=== PATIENT | female | born 1940 | race Caucasian/White ===

== ENCOUNTER 2025-09-06 09:01 | Outpatient (AMB) | payer MEDICARE, SELFPAY ==
--- OUTSIDE RECORDS SUMMARY | 2025-09-06 09:03 | XMS_ITS | Patient Health Record ---
[facility] Address [address] [place] [address] Care Team Providers Care Infant Caregiver Name Role Phone Mala JAFFE, [facility] Primary Care Provider Micaela Gina Faria Unavailable [phone] Allergies No Known Allergies Reason For Referral No Information Medications Medication SIG (Take, Route, Frequency, Duration) Notes Start Date End Date Status Vitamin Daily Active Vitamin C 1000 MG 1 tablet Orally Once a day; Duration: 30 day(s) Active Senior Multivitamin Plus Active Omeprazole 20 MG 1 tablet 30 minutes before morning meal Orally Once a day; Duration: 30 day(s) 2 per day Active Mingo 3 1000 MG 1 capsule Orally Onc e a day; Duration: 30 day(s) Active Caltrate 600+D Activ e amLODIPine Besylate 10 MG 1 tablet Orall y Once a day; Duration: 30 day(s) Active Immunizations Vaccine Route Administration Date Status Comme nts Influenza Unknown 06/12/2024 Administered COVID-19 Pfizer BioNTech Vaccine Unknown 03/12/2022 Administered 2020,2020,2020 unsure dates Social History Tobacco Use: Social History Observation Description Date Details (start date - stop date) Never Smoker NA - NA Tobacco use other than smoking: Question Answer Notes Are you an other tobacco user? No Tobacco Control (Standard) Question Answer Notes Tobacco use: Nonsmoker Additional Findings: Tobacco non-user Current no nsmoker AUDIT-C (Standard) Question Answer Notes Did you have a drink containing alcohol in the p ast year? No Points 0 Interpretation Negative Problems Problem Type SNOMED Code ICD Code Onset Dates Problem Status W/U Status Risk Notes Problem Acquired hallux valgus (05799389) Hallux valgus (acquired), right foot (M20.11) Active confirmed Problem Bilateral atherosclerosis of arteries of lower limbs (disorder) (69696298408038019 ) Atherosclerosis of [place] artery of both lower extremities, with unspecified presence of clinical manifestation (I70.203) Active confirmed Q7(A), Q8(2B), Q9(1B,2 C) Problem Peripheral venous insufficiency (48599020) Venous insufficiency (I87.2) Active confirmed Vital Signs Blood pressure diastolic 65 mm Hg 04/08/2025 Height 5 ft 1 in in 04/08/2025 Blood pressure systolic 128 mm Hg 04/08/2025 Weight 185 lbs 04/08/2025 BMI 34.95 kg/m2 04/08/2025 Procedures Procedure Date Ordered Date Performed Result Body Sit e 81529-SECGZDY NAIL, 6 OR MORE 10/08/2024 N/A 40296-GCRK SKIN LESIONS, 2 TO 4 10/08/2024 N/A 17346-QLEWKEG NAIL, 6 OR MORE 04/08/2025 N/A 78899-XUPX SKIN LESIONS, 2 TO 4 04/08/2025 N/A Encounters Encounter Location Date Provider Diagnosis [address] [address] 10/08/2024 Gina Chirinos Atherosclerosis of [place] artery of both lower extremities, with unspecified presence of clinical manifestation I70.203 ; Tinea unguium B35.1 ; Pain in right toe(s) M79.674 and Pain in left toe(s) M79.675 [facility] [address] 01/17/2025 Gina Chirinos Edema, lower extremity R60.0 and Venous insufficiency I87.[address] [address] 04/08/2025 Gina Chirinos Atherosclerosis of [place] artery of both lower extremities, with unspecified presence of clinical manifestation I70.203 ; Tinea unguium B35.1 ; Pain in right toe(s) M79.674 and Pain in left toe(s) M79.675 Assessments Encounter Date Diagnosis (ICD Code) Assessment Notes Treatment Notes Treatment Clinical Notes Section Notes 10/08/2024 Atherosclerosis of [place] artery of both lower extremities, with unspecified presence of clinical manifestation (ICD-10 - I70.203) Q7(A), Q8(2B), Q9(1B,2C) 01/17/2025 Venous insufficiency (ICD-10 - I87.2) 01/17/2025 Edema, lower extremity (ICD-10 - R60.0) 04/08/2025 Atherosclerosis of [place] artery of both lower extremities, with unspecified presence of clinical manifestation (ICD-10 - I70.203) Q7(A), Q8(2B), Q9(1B,2C) 04/08/2025 Tinea unguium (ICD-10 - B35.1) 10/08/2024 Tinea unguium (ICD-10 - B35.1) 10/08/2024 Pain in right toe(s) (ICD-10 - M79.674) 04/08/2025 Pain in right toe(s) (ICD-10 - M79.674) 04/08/2025 Pain in left toe(s) (ICD-10 - M79.675) 10/08/2024 Pain in left toe(s) (ICD-10 - M79.675) Plan Of Treatment Pending Test Test Name Order Date X ray : Foot, left 3V 08/20/2022 X ray : Foot, right 3V 08/20/2022 52042-BDRCHPW NAIL, 6 OR MORE 10/08/2024 65898-LIPBFQU NAIL, 6 OR MORE 04/08/2025 50837-MKNX SKIN LESIONS, 2 TO 4 04/08/20 68253-NPLF SKIN LESIONS, 2 TO 4 10/08/19 25 Next Appt Details Provider Name:Gina clements, 10/10/2025 10:00:00 AM, [address] [facility], [place], [address], Insurance Providers Payer Name Payer Address Payer Phone Subscriber Number Group Number Insured Name Patient Relationship to Insured Coverage Start Date Coverage End Date Medicare National [employer] [address] [place] [address] [phone] [id number] Chanell Lo Self - patient is the insured [employer] [address] [place] [address] [id number] Chanell Lo Self - patient is the insured Medical (General) History Medical History History ICD Code Cataracts Chicken pox Gall bladder problems Eczema High blood pressure Measles Mumps Reflux Surgical History Surgery Date(Month/Year) hysterectomy 12/1980
--- NOTE | 2025-09-06 09:12 | AM.OFFWIN_ITS ---
Intake Vital Signs 09/06/25 09:15 Height 5 ft 2 in Weight 191 lb BMI 34.9 BP 146/80 H Blood Pressure Location Lt brachial Position Sitting Respiration 16 Pulse 60 Pulse Source Pulse Oximeter Temp 97.5 F Temp Source Oral Pulse Oximetry (%) 98 Oxygen Delivery Method Room Air Intake Visit Reasons: EP Cough Intake Note: EP complains of having cough (productive-yellow color) started four days ago (Tuesday). Allergies No Known Allergies Allergy (Verified 09/06/25 09:23) Do you need a note to return to daycare/school/sports/work: No HPI HPI Comments History of Present Illness Details History of Present Illness The patient is an 85 year old female with a past medical history of hypertension, hyperlipidemia, and GERD presenting with a cough. - The patient reports a 4-day history of a cough productive of green mucus, which is expressed through her nose and throat. - She denies having a sore throat, chest pain, difficulty breathing, or fevers. - Associated symptoms are denied includi ng nausea, vomiting, or diarrhea. - She has been taking DayQuil and NyQuil for her symptoms. - She performed a COVID test at home, wh ich was negative. Review of Systems Constitutional: Negative for fevers, chills HENT: Reports rhinorrhea and congestion, and cough. Negative for sore throat, ear pain, ear discharge, hearing loss Respiratory: Reports cough. Denies shortness of breath or wheezing Cardiac: Negative for chest pain Gastrointestinal: Negative for abdominal pain, nausea, vomiting, diarrhea, Musculoskeletal: Negative for myalgias, Physical Exam General Appearance: Normal appearance, well developed. No acute distress HEENT: Normocephalic, atraumatic. External ears and ear canals normal. Right TM with scarring without erythema or bulging. Nasal congestion present with clear nasal discharge. No postnasal drip. Oropharynx clear without erythema or exud ate. Cardiac: Regular rate and rhythm. No murmurs. Pulmonary: No respiratory distress. Speaking in full sentences. Clear to auscultation bilaterally. Musculoskeletal: Moving all extremities spontaneously and against gravity Mental Status: Alert and Oriented x 3 Psychiatric: Normal mood. Normal affect. Physical Exam Vital Signs: Last Vital Signs Temp 97.5 F 09/06/25 09:15 Pulse 60 09/06/25 09:15 Resp 16 09/06/25 09:15 BP 146/80 H 12/26/25 09:15 Pulse Ox 98 09/06/25 09:15 Oxygen Delivery Method Room Air 09/06/25 09:15 BMI result Body Mass Index 34.9 Assessment & Plan Assessment & Plan (1) Cough: Code(s): R05.9 - Cough, unspecified Qualifiers: Cough type: acute Qualified Code(s): R05.1 - Acute cough (2) Viral URI: Code(s): J06.9 - Acute upper respiratory infection, unspecified Plan - The patient presents with a four-day history of productive cough, rhinorrhea, and congestion - Concern for pneumonia is low given that her lungs are clear on exam, she is saturating well, and she denies fever, chest pain, or shortness of breath. - Discussed COVID/flu/RSV swab, however patient reports that she tested herself at home for COVID and was negative - The plan is to continue supportive care, including rest and hydration to help thin the mucus. - She was advised she may continue OTC cough medicine - She was instructed to seek immediate re-evaluation for new fevers, shortness of breath, chest pain, or a worsening cough, at which point chest imaging may be considered. Patient was informed and verbally consented to the use of an ambient scribe for clinic note documentation during the visit. Coding Level of Care Code New Pt Level 3 (90315) Diagnoses Acute cough R05.1 Cough type: acute Viral URI J06.9
[2025-09-06 09:15] VITALS: BP 146/80; PULSE 60; RESP 16; TEMP 36.4; O2SAT 98; BMI 34.9
== END 2025-09-06 09:51 | disposition home or self-care (01) ==
PROVIDERS: Visit Provider Family Medicine
DX: R05.1 Acute cough (principal); J06.9 Acute upper respiratory infection, unspecified

== ENCOUNTER → 2025-09-06 09:01 | Outpatient (BNVA) | payer MEDICARE, SELFPAY | PROVIDERS: Visit Provider Family Medicine | DX: R05.1 Acute cough (principal); J06.9 Acute upper respiratory infection, unspecified | CPT/HCPCS: 99202 ==